=== PATIENT | male | born 1975 | race Asian ===

== ENCOUNTER → 2016-04-17 | Outpatient (CLI) | payer BC ==
[~2016-04-17] MED LIST: ZANAFLEX 4MG TAB4 MG PO
== END ==
LOC: COL.RAD 08:10
DX: R10.13 Epigastric pain (principal); B18.1 Chronic viral hepatitis B without delta-agent; R74.8 Abnormal levels of other serum enzymes

== ENCOUNTER → 2017-04-18 | Outpatient (CLI) | payer BC | LOC: COL.RAD 10:27 | DX: R74.8 Abnormal levels of other serum enzymes (principal); M54.5 Low back pain; B18.1 Chronic viral hepatitis B without delta-agent ==

== ENCOUNTER → 2017-07-12 | Outpatient (CLI) | payer BC | LOC: COL.RAD 10:35 | DX: B18.1 Chronic viral hepatitis B without delta-agent (principal); R93.3 Abnormal findings on diagnostic imaging of other parts of digestive tract; M54.9 Dorsalgia, unspecified | CPT/HCPCS: Q9967 ==

== ENCOUNTER → 2018-06-11 | Outpatient (CLI) | payer BC | LOC: COL.RAD 07:27 | DX: B18.1 Chronic viral hepatitis B without delta-agent (principal) | CPT/HCPCS: A9585 ==